=== PATIENT | female | born 1960 | race African-American/Black ===

== ENCOUNTER 2016-08-11 08:28 | Day surgery (SDC) | payer BC ==
--- NOTE | ~2016-08-11 | OP ---
Record Of Operation [facility] [address] [place]. [address] NAME: ELADIO MONTEZ : 56 STATUS : [facility]#: [id number] AGE: 55 ADM/REG DATE : 08/11/16 MR#: [id number] REPORT SERV DATE: 08/15/16 DICTATED BY: OCLBY SEGOVIA DATE: 08/15/16 REPORT STATUS : Draft TRANSCRIBED BY: MODL DATE: 08/15/16 DATE OF PROCEDURE: 08/11/2016 PREOPERATIVE DIAGNOSIS: Metastatic lung cancer with need for IV access for chemotherapy. POSTOPERATIVE DIAGNOSIS: Metastatic lung cancer with need for IV access for chemotherapy. PROCEDURE: Placement of PowerPort, right subclavian vein site (8-Salvadorean). DESCRIPTION OF OPERATIVE PROCEDURE: The patient was brought to the operating suite, placed in the supine position, underwent satisfactory monitored anesthetic care. The skin of the upper chest was scrubbed, prepped, and draped in usual sterile fashion. 0.5% Marcaine with epinephrine was utilized as supplemental local anesthesia at all the surgical sites. Initially, the patient was placed in Trendelenburg position and the right subclavian vein was cannulated using the Seldinger technique. A curved, flexible tipped guidewire was advanced to the atriocaval junction under fluoroscopic guidance. A subcutaneous pocket was created over the right pectoral musculature in the infraclavicular region. The skin was incised, dissecting through the skin and subcutaneous tissue to the pectoralis fascia, and then dissecting superiorly elevating the skin and fat off the fascia to where the venipuncture site and guidewire were. Heparin flushed silastic tubing was trimmed to 18 cm and was brought from the port placement site to the venipuncture site. The tubing was affixed with a locking sleeve to the previously heparin flushed PowerPort, which was then sutured to the pectoralis muscle fascia at four locations using 2-0 Prolene. A peel-away introducer sheath was advanced over the guidewire into the subclavian vein with the guidewire being removed. It was aspirated and showed good blood flow and returned and then the dilator was removed leaving the peel-away sheath in the vein. The silastic tubing was advanced down the peel-away sheath to its full extent with the sheath being removed leaving the tubing affixed to the port in situ. Fluoroscopy confirmed smooth course of the tubing with the tip at the atriocaval junction. The port was aspirated with a straight Berry needle with good blood flow and then flushed with fresh heparinized saline. Subcutaneous pocket was irrigated and closed subcutaneously with interrupted 3-0 Vicryl, running subcuticular stitch with 4-0 Vicryl. Dermabond skin adhesive applied. The patient tolerated the procedure well and was returned to PACU in stable condition. At the termination procedure, sponge, needle, lap, and instrument counts were correct x3. ESTIMATED BLOOD LOSS: Negligible. Record Of Operation [facility] [id number] [place]. [address] NAME: ELADIO MONTEZ : 56 STATUS : [facility]#: [id number] AGE: 55 ADM/REG DATE : 08/11/16 MR#: [id number] REPORT SERV DATE: 08/15/16 DICTATED BY: COLBY SEGOVIA DATE: 08/15/16 REPORT STATUS : Draft TRANSCRIBED BY: LEATHA DATE: 08/15/16 Postprocedural chest x-ray showed smooth course of the tubing with the tip at the atriocaval junction and no evidence of pneumothorax. CHRISTOPHER/LEATHA Colby Segovia M.D. / [id number] CC: Carlyn Carias M.D.
[~2016-08-11 08:28] MED LIST: CARDCD120 PO; DENIES HOME MEDS; FOLIC PO; HYDROCHLOROT25 MG PO; IPRA17AE INH; KLOR-CON M2020 MEQ PO; MYCELEX TROCHE10 MG PO; OXYCOD PO; P20 PO; PCET PO; PENICILLN VK500 MG PO; PR25 PO; PROTONIX PO; TYLENOL PM PO; VITC500 PO
[2016-08-11 09:08] LABS: HEMATOCRIT 37.1 % (36.0-48.0)
[2016-08-11 09:20] LABS: BUN (BLOOD UREA NITROGEN) 6 MG/DL (6-23); CHLORIDE, SERUM 109 MMOL/L (96-112); CO2 (CARBON DIOXIDE) 22 MMOL/L (24-34); CREATININE 0.86 MG/DL (0.55-1.02); GFR AFRICAN AMERICAN 87 ML/MIN (>=60); GFR NON AFRICAN AMERICAN 75 ML/MIN (>=60); SODIUM, SERUM 140 MMOL/L (135-148)
[2016-08-11 09:22] LABS: CALCIUM, SERUM 9.5 MG/DL (8.5-10.4); GLUCOSE, SERUM 161 MG/DL (60-99)
== END 2016-08-11 15:02 | disposition home or self-care (01) ==
LOC: SDC 08:28
PROVIDERS: Specialist
PROC: 0JH60XZ Insertion of Tunneled Vascular Access Device into Chest Subcutaneous Tissue and Fascia, Open Approach (ICD-10-PCS; principal; 2016-08-11 09:45)
DX: C78.00 Secondary malignant neoplasm of unspecified lung (principal); C80.1 Malignant (primary) neoplasm, unspecified; I48.91 Unspecified atrial fibrillation; J44.9 Chronic obstructive pulmonary disease, unspecified; I11.0 Hypertensive heart disease with heart failure; I50.9 Heart failure, unspecified; Z90.49 Acquired absence of other specified parts of digestive tract; Z90.710 Acquired absence of both cervix and uterus; Z98.51 Tubal ligation status; Z98.890 Other specified postprocedural states; Z87.891 Personal history of nicotine dependence; Z79.899 Other long term (current) drug therapy
CPT/HCPCS: 71010; 77001; 80048; 85014; 85018; 93005; A9270-GY; C1751; J0690; J2250; J2405; J3010

== ENCOUNTER 2016-09-18 14:38 | Inpatient (IN) | payer BC ==
--- NOTE | ~2016-09-18 | DS ---
Discharge Summary [facility] [address] [place]. [address] NAME: ELADIO LEO : 56 STATUS : ADM IN [facility]#: [id number] AGE: 55 ADM/REG DATE : 09/18/16 MR#: [id number] REPORT SERV DATE: 09/22/16 DICTATED BY: ARCHANA HEATH DATE: 09/22/16 REPORT STATUS : Draft TRANSCRIBED BY: MODL DATE: 09/22/16 ADMISSION DATE: 09/18/2016 DISCHARGE DATE: 09/22/2016 REASON FOR ADMISSION: Acute PE and dysphagia. HISTORY OF PRESENT ILLNESS: Please refer to Dr. Gavin Chua's history and physical dated 09/18/2016 for complete details on the patient's admission. In brief, the patient was admitted to the Hospitalist Service for an acute PE and concern for COPD exacerbation. HOSPITAL COURSE: 1. The patient was initially started on doxycycline, Solu-Medrol, and nebulizers by Dr. Chua. The patient had a CT angio of her chest on 09/19/2016, which showed a single pulmonary embolus in the left upper lobe. There is an area of soft tissue density in the anterior mediastinum, as well as adjacent to the right pulmonary artery, with increased soft tissue density in the subcarinal region consistent with metastatic disease. There are some bilateral pleural effusions. She was started on initially heparin drip, which was switched over to Lovenox, she has been tolerating it very well. She is off oxygen. She does have some mild retrosternal chest pain. 2. Strep throat. The patient presented with strep antigen positive. She was started on antibiotics and doing well. 3. Dysphagia. 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 With these findings, the patient had an EGD done by Dr. Sosa on 09/21/2016, which showed no endoscopic esophageal abnormality to explain the patient's dysphagia. There was no web or ring seen on the esophagram. Dr. Sosa did multiple passes, but did not find any abnormalities. He however did dilate the esophagus using a 48-Amharic. Afterwards, the patient tolerated the procedure very well. She is now tolerating regular food for the first time in quite some time. She has reached maximal hospitalization and will be discharged home today in stable condition to follow up with Dr. Cordero. DISCHARGE DIAGNOSES: 1. Acute pulmonary embolism, secondary to cancer. 2. Dysphagia, status post esophageal dilatation. 3. Metastatic lung cancer. 4. Strep pneumo positive. 5. Chronic obstructive pulmonary disease with exacerbation, now resolved prior to discharge. DISCHARGE MEDICATIONS: Augmentin 875 mg twice a day for seven days, diltiazem 120 mg daily, folic acid 1 mg daily, Atrovent p.r.n., Roxicodone p.r.n., gabapentin p.r.n. pain, Phenergan p.r.n., and Lovenox 100 mg subcu daily. FOLLOWUP: The patient will follow up with Dr. Cordero as scheduled Discharge Summary [address] [address] NAME: ELADIO LEO : 56 STATUS : ADM IN [facility]#: [id number] AGE: 55 ADM/REG DATE : 09/18/16 MR#: [id number] REPORT SERV DATE: 09/22/16 DICTATED BY: ARCHANA HEATH DATE: 09/22/16 REPORT STATUS : Draft TRANSCRIBED BY: LEATHA DATE: 09/22/[address] Archana Heath spending over 30 minutes discharge planning and coordination of care on Ms. Leo. DICTATED BY: MD SAPPHIRE Blank/LEATHA Archana Heath MD / [id number] CC: Archana Heath MD
--- NOTE | ~2016-09-18 | HP ---
History And Physical [facility] [id number] [place]. [address] NAME: ELADIO MONTEZ : 56 STATUS : ADM IN PAT#: [id number] AGE: 55 ADM/REG DATE : 09/18/16 MR#: [id number] REPORT SERV DATE: 09/19/16 DICTATED BY: FREDERIC STARKS DATE: 09/18/16 REPORT STATUS : Draft TRANSCRIBED BY: MODHenrietta DATE: 09/18/16 DATE OF ADMISSION: 09/18/2016 CHIEF COMPLAINT: A 55-year-old female with metastatic lung cancer, now presenting with increasing shortness of breath and chest pain. HISTORY OF PRESENT ILLNESS: The patient's history was obtained through careful interview with the patient and three daughters, coupled with review of [facility] medical records. The patient was diagnosed with metastatic lung cancer in May 2016 with metastases to the pleural space, pericardial space, and mediastinal lymph nodes. She has been under the care of Dr. Kwan Cordero, on chemotherapy for the last three months. There has been no discussion regarding surgical removal of the cancer nor radiation at this time. But just in the last three weeks, the patient has noticed increasing debilitation, mostly related to an exertional fatigue. She also has had increasing shortness of breath characterized by dyspnea on exertion and it has finally gotten to the point this last week where she cannot even walk across the room without gasping for breath and the stairs to go up into her house nearly debilitated her. She describes two days of new-onset chest discomfort in her left lower chest, at the base of the lung, behind the breast, it has a "grabbing," severe quality, 6/10 in severity, exacerbated by breathing and certain movements. No cough. No diarrhea. She has had nausea with vomiting. She has had about a 25-pound weight loss over the last five months. For the last two months, she has also had increasing severe dysphagia in the last week. She cannot eat anything, but popsicles and yogurt and still drink and food will get stuck in her throat, mostly in the area that she believes is her esophagus. There is no pain with swallowing now. She has had some blurring of vision. No lightheadedness. She describes a very cold feet "like ice." No abdominal pain. She has a dry mouth. REVIEW OF SYSTEMS: Otherwise, a 14-point review of systems was obtained and was negative. PAST MEDICAL HISTORY: 1. Lung cancer with metastases in May 2016, followed by Dr. Kwan Cordero. 2. COPD. 3. Pericardial effusion, status post window in May 2016, related to cancer spread. 4. Hypertension. 5. Right pneumonia. History And Physical [facility] [address] [place]. [address] NAME: ELADIO MONTEZ : 56 STATUS : ADM IN [facility]#: [id number] AGE: 55 ADM/REG DATE : 09/18/16 MR#: [id number] REPORT SERV DATE: 09/19/16 DICTATED BY: FREDERIC STARKS DATE: 09/18/16 REPORT STATUS : Draft TRANSCRIBED BY: LEATHA DATE: 09/18/16 6. Right diaphragm paralysis. 7. Cholelithiasis. 8. Pleural effusion, status post thoracotomy and talc pleurodesis. 9. Peptic ulcer disease, seen by Dr. Sosa. PAST SURGICAL HISTORY: 1. Port-A-Cath. 2. Appendectomy. 3. Hysterectomy with oophorectomy. 4. Lumbar spine surgery. 5. Ectopic . 6. Hand surgery. 7. Pericardial window in May 2016. 8. Thoracotomy with talc pleurodesis. SOCIAL HISTORY: The patient quit smoking in April 2016. Drinks occasional alcohol, but not too often. Lives with her daughter. She is . Has a total of three daughters who are at bedside. 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 FAMILY HISTORY: Brother at 47 years of age of heart valve disease. Sister at 57 years of age of congestive heart failure. Mother with diabetes. Father with cancer and stroke. CURRENT MEDICATIONS: Include diltiazem CD 120 mg p.o. daily, folic acid p.o. daily, Neurontin 300 mg p.o. t.i.d. as needed, Atrovent, Roxicodone 5/10 mg four times a day, Phenergan p.r.n., and chemotherapy. PHYSICAL EXAMINATION: VITAL SIGNS: Temperature 98.4, pulse 110, blood pressure 121/82, respiratory rate 22, and O2 saturation 97% on room air. GENERAL: A pleasant, cooperative, female. She is describing distress from her chest discomfort and shortness of breath. HEENT: Pupils are equal, round, and reactive to light. No conjunctival pallor. No scleral icterus. Nares are patent. Oropharynx is clear of obstruction. Moist mucous membranes. NECK: Trachea midline. No thyromegaly. LYMPH: No cervical lymphadenopathy. No supraclavicular lymphadenopathy. RESPIRATORY: The patient has a "tight" exam with poor air movement to her lungs, scattered rhonchi, but mild. No rales. She has mild dullness to percussion bilaterally to suggest at least [id number] sized pleural effusions. She has a labored respiratory effort. CARDIOVASCULAR: Tachycardic, regular rhythm. No murmurs, rubs, or gallops are appreciated. No current extremity edema is appreciated. ABDOMEN: Soft, nontender, and nondistended. Normal bowel sounds auscultated throughout. No hepatosplenomegaly. DERMATOLOGICAL: Warm and dry extremities. No pallor. No cyanosis. PSYCHIATRIC: Normal affect. Good mood. Alert and oriented x3. History And Physical [address] [address] NAME: ELADIO MONTEZ : 56 STATUS : ADM IN [facility]#: [id number] AGE: 55 ADM/REG DATE : 09/18/16 MR#: [id number] REPORT SERV DATE: 09/19/16 DICTATED BY: FREDERIC STARKS DATE: 09/18/16 REPORT STATUS : Draft TRANSCRIBED BY: LETAHA DATE: 09/18/16 LABORATORY DATA: White blood cell count 5.1, hemoglobin 11.4, hematocrit 35.5, and platelets 119. Sodium 144, potassium 3.1, chloride 106, bicarb 30, BUN 6, creatinine 0.77, and glucose 88. Brain natriuretic peptide 288. Lipase 47. Lactic acid 1.8. INR 1.5. Liver enzymes within normal limits. Urinalysis shows large leukocyte esterase, but only 5 white blood cells and 25 red blood cells. STUDIES: 1. Chest x-ray by my own evaluation shows bilateral pleural effusions. 2. EKG by my own evaluation shows sinus rhythm with tachycardia, low QRS voltage, T-wave inversions in leads V3 through V6; also T-wave inversions in leads I, II, and aVF. ASSESSMENT AND PLAN: 1. Dyspnea. I would like to check a stat CTA of the chest PE protocol. Treat chronic obstructive pulmonary disease. Check an echocardiogram to evaluate pericardial effusion. 2. Chronic obstructive pulmonary disease exacerbation. Place on DuoNeb nebulizers, doxycycline, Solu-Medrol. 3. Metastatic lung cancer, with chemotherapy. Consult Dr. Kwan Cordero. 4. Pericardial effusion with history of pericardial window in May 2016. Check an echocardiogram. 5. Severe dysphagia. Consult Dr. Sosa, aircraft servicer. Place on IV proton pump inhibitor. KPL/MODL Frederic Starks M.D. / [id number] CC: Carlyn Canada Dr., M.D. William M. Cooney, MD
--- NOTE | ~2016-09-18 | CN ---
Consultation Report [facility] [address] [place]. [address] NAME: ELADIO LEO : 56 STATUS : ADM IN PAT#: [id number] AGE: 55 ADM/REG DATE : 09/18/16 MR#: [id number] REPORT SERV DATE: 09/19/16 DICTATED BY: SARA AMBROCIO DATE: 09/19/16 REPORT STATUS : Draft TRANSCRIBED BY: MODL DATE: 09/19/16 GI CONSULTATION DATE OF CONSULTATION: 09/19/2016 REASON FOR CONSULTATION: Evaluation and management of severe dysphagia. HISTORY OF PRESENT ILLNESS: Ms. Leo is a 55-year-old female patient, who is known to our group. We saw her in 05/2016 secondary to her newly diagnosed mediastinal adenocarcinoma with an elevated CEA level. She was at that point in time complaining of shortness of breath with increasing progressiveness of her dyspnea with debility. She came in, imaging was showing enlarging pericardial effusion with pre-tamponade anterior mediastinal mass of unknown etiology. She was seen by Dr. Walsh, underwent bronchoscopy, transesophageal echocardiogram, right thoracoscopy with exploration, subsequently pericardial window with pericardial biopsy, biopsy of anterior mediastinal mass, talc pleurodesis, and an intercostal block. She had a postoperative diagnosis of metastatic adenocarcinoma from the right upper lobe of the lung. She did have at that time elevated CEA level and CA-125 as well as CA-19-9. She had a CT scan of the brain, abdomen, and pelvis which was ultimately, brain was negative for metastatic disease and CT of the abdomen showed some heterogeneous attenuation of the liver which was nonspecific but could have indicated metastasis. She ultimately underwent upper endoscopy as well as colonoscopy with Dr. Sosa. Her testing date 06/01/2016. Her upper endoscopy showed nummular lesions in esophageal mucosa secondary to Petra. Cytology was positive for gastric ulcers with clean base biopsies were negative for H pylori, negative for any metastatic disease. She was treated with fluconazole for three weeks by review of her discharge summary. Her colonoscopy dated 06/01/2016 showed the entire examined colon normal and no suggestion of malignancy. Subsequently, she has discharged. She has been following with Dr. Kwan Cordero in the outpatient setting. Her last chemotherapy treatment was roughly two weeks ago. She is being treated with Alimta and carboplatin. Last imaging showed new progression of her disease. She tells me that in regard to her dysphagia, she has had some progressive symptoms initially with breads and meats sticking. She states that however for the last month she has been living off those soft foods and liquids. However, in the past eight days, she has had progressive trouble swallowing anything. She reports that she has to go through a ritual of turning her head to the left side if she takes any liquids to even facilitate the passage of them. She states that most of the time, it does stick in her mid esophagus. If she tries to swallow anything behind that, it would subsequently cause it to immediately come back up. She states that for the past eight days, it really has not passed even with trying to aid it with other liquids. She immediately regurgitates all of her ingested liquids back up. She is unsure if she has had any weight loss. She does not weigh herself daily. She denies any pain on swallowing. She has not vomited up anything that appears to be bloody type material. She has secondary to her progressive shortness of breath and dysphagia symptoms came in to [facility] for further evaluation. CTA of the chest revealed acute PE of the left upper lobe, and she was subsequently started on a heparin drip. I have discussed with the patient. We will plan on upper GI series barium Consultation Report [facility] [address] [place]. [address] NAME: ELADIO LEO : 56 STATUS : ADM IN PAT#: [id number] AGE: 55 ADM/REG DATE : 09/18/16 MR#: [id number] REPORT SERV DATE: 09/19/16 DICTATED BY: SARA AMBROCIO DATE: 09/19/16 REPORT STATUS : Draft TRANSCRIBED BY: MODL DATE: 09/19/16 swallow today prior to any endoscopic evaluation. I did discuss with her she is at increased risk for sedation. Also we will have to hold her heparin drip four to six hours prior to any endoscopy. I also did discuss with her that if the PEG tube was needed at some point in time, would she be agreeable with this, she states that this is something she has. I discussed with her daughter in the outpatient setting and she would possibly agree to having feeding tube placement done. PAST MEDICAL HISTORY: Positive for gastric ulcers; Petra esophagitis; lung cancer with metastatic disease; malignant pleural effusion and pericardial involvement of COPD; pericardial effusion with pre-tamponade, status post pericardial window in 05/2016; hypertension; pneumonia; pleural effusions; right diaphragm paralysis; cholelithiasis. PAST SURGICAL HISTORY: Ectopic surgery, appendectomy, hysterectomy with oophorectomy, hand surgery, lumbar spine surgery, Port-A-Cath placement to the right upper chest wall, pericardial window, and thoracotomy with talc pleurodesis, SOCIAL HISTORY: Past tobacco cessation 04/2016. Social alcohol. No illicits. Lives independently with her daughter. FAMILY HISTORY: Noncontributory from a GI standpoint. ALLERGIES: LISTED TO NOTHING. HOME MEDICATIONS: Consist of Cardizem, folic acid, Neurontin, Atrovent, Roxicodone, Phenergan, and chemotherapy. REVIEW OF SYSTEMS: A 10-point review of systems has been obtained with pertinent positives being addressed in the history of present illness. PHYSICAL EXAMINATION: VITAL SIGNS: Temperature last being 97.6, pulse of 95, respirations 14, and blood pressure 115/76. NEUROLOGIC: Reveals an alert, female, resting in bed. She has some mild shortness of breath noted. No focal defects. GENERAL: She is cooperative. She is in mild distress secondary to shortness of breath. She is oriented x3. HEAD, EARS, EYES, NOSE, AND THROAT: Anicteric. Pupils are equal, round, and reactive to light and accommodation. Normocephalic and atraumatic. NECK: Supple neck. No JVD. No palpable nodes. LUNGS: Diminished with shallow inspiratory effort noted. She has no wheeze, rhonchi, or rales auscultated. She has O2 at 2 L. CARDIOVASCULAR SYSTEM: Regular rate and rhythm. S1 and S2. ABDOMEN: Soft, nondistended, nontender with hypoactive bowel sounds in all four quadrants. EXTREMITIES: No edema. Normal distal pulses. Consultation Report [address] [place]. [address] NAME: ELADIO LEO : 56 STATUS : ADM [facility]#: [id number] AGE: 55 ADM/REG DATE : 09/18/16 MR#: [id number] REPORT SERV DATE: 09/19/16 DICTATED BY: SARA AMBROCIO DATE: 09/19/16 REPORT STATUS : Draft TRANSCRIBED BY: LEATHA DATE: 09/19/16 SKIN: Warm, dry, and intact. PERTINENT LABORATORY DATA: Sodium 142, potassium 3.8, BUN 6, creatinine 0.99. White count 2.7, hemoglobin 11.2, hematocrit 35.4, and platelet count 143. INR of 1.8. Troponin is less than 0.02. BNP of 248. CT of the abdomen and pelvis with no contrast showed some small abdominal ascites, small right pleural effusion, and small to moderate left pleural effusion. CT of the chest shows left upper lobe acute pulmonary embolus. ASSESSMENT AND PLAN: 1. Acute pulmonary embolus, left upper lobe, now on heparin drip. 2. "Severe dysphagia" progressively worsening over the last eight days from her baseline. 3. Metastatic lung cancer, pericardial involvement, malignant right pleural effusion, status post four cycles of chemotherapy under the direction of Dr. Kwan Cordero, last treatment two weeks ago. 4. Bilateral pleural effusions,shortness of breath, and dyspnea. 5. Chronic obstructive pulmonary disease with exacerbation. 6. History of Petra esophagitis. PLAN: 1. Upper GI series barium swallow today. 2. We will plan EGD in one to two days based on #1 and shortness of breath improvement. 3. Clear liquid diet after testing. 4. Diflucan IV q. day 200 mg for any Petra. 5. We will follow. Other recommendations after upper GI series. BEVERLY/LEATHA RIAN Soliman / [id number] CC: Jose Luis Hall M.D. NO PCP
[2016-09-18 18:02] LABS: ASCORBIC ACID (UR NOT ORDER) NEG (NEG); BILIRUBIN, URINE NEGATIVE (NEG); ER URINALYSIS TAT 0 Hrs 09 Mins; KETONE, URINE NEGATIVE (NEG); LEUKOCYTE ESTERASE(NOT OR LARGE (NEG); NITRITE (URINE) NEG (NEG); WBC (NOT ORDERED) (RFLEX) 5 (0-5)
[2016-09-18 18:19] LABS: BASOPHILS 0 %; EOSINOPHILS 0.2 %; EOSINOPHILS ABSOLUTE 0.01 10/3/uL (0.0-0.53); ER CBC TAT 0 Hrs 14 Mins; HEMATOCRIT 35.5 % (36.0-48.0); HEMOGLOBIN 11.4 g/dL (12.0-16.0); LYMPHOCYTES 46.9 %; LYMPHOCYTES ABSOLUTE 2.38 10/3/uL (0.67-4.30); MEAN CORPUS HGB CONC 32.1 g/dL (32.0-36.0); MEAN CORPUSCULAR HEMOGLOB 31.4 pg (26.0-34.0); MEAN CORPUSCULAR VOLUME 97.8 fL (80-100); MEAN PLATELET VOLUME 10.8 fL (9.2-13.0); MONOCYTES 19.9 %; MONOCYTES ABSOLUTE 1.01 10/3/uL (0.21-1.20); NEUTROPHILS ABSOLUTE 1.67 10/3/uL (2.02-8.40); PLATELET COUNT 119 10/3/uL (150-400); RED CELL COUNT 3.63 10/6/uL (4.0-5.6); WHITE BLOOD CELLS 5.1 10/3/uL (4.5-10.5)
[2016-09-18 18:20] LABS: MANUAL DIFF NO %
[2016-09-18 18:37] LABS: BUN (BLOOD UREA NITROGEN) 6 MG/DL (6-23); CALCIUM, SERUM 9.1 MG/DL (8.5-10.4); CHLORIDE, SERUM 106 MMOL/L (96-112); CREATININE 0.77 MG/DL (0.55-1.02); DIRECT BILIRUBIN 0.3 MG/DL (0.0-0.4); GFR AFRICAN AMERICAN 99 ML/MIN (>=60); GFR NON AFRICAN AMERICAN 86 ML/MIN (>=60); SGOT(AST) 18 U/L (5-40); SGPT(ALT) 18 U/L (5-65); SODIUM, SERUM 144 MMOL/L (135-148); TROPONIN I <0.02 NG/ML (<0.05)
[2016-09-18 18:38] LABS: ALBUMIN 3.5 G/DL (3.5-5.0); ALKALINE PHOSPHATASE 133 U/L (45-117); CHEST PAIN PROFILE TAT 0 Hrs 32 Mins; CO2 (CARBON DIOXIDE) 30 MMOL/L (24-34); GLUCOSE, SERUM 88 MG/DL (60-99); INDIRECT BILIRUBIN(NOT ORDER) 0.5 MG/DL (0.1-0.9); POTASSIUM, SERUM 3.1 MMOL/L (3.5-5.3); TOTAL BILIRUBIN 0.8 MG/DL (0-1.2)
[2016-09-18 18:42] LABS: INTERNATIONAL NORMAL RATI 1.5 UNITS (-); PARTIAL THROMBO TIME 30.2 SEC (22.5-37.2); PROTIME (NOT ORD) 18.3 SEC (12.0-14.5)
[2016-09-18 18:43] LABS: LACTATE 1.8 MMOL/L (0.3-2.4)
[2016-09-18] MEDS ORDERED: PR12.5 PO ×2 (18:51→18:52)
[2016-09-18] MEDS ORDERED: NEUR300 PO (18:51)
[2016-09-18] MEDS ORDERED: CHEMO IV (18:53)
[2016-09-19 05:12] LABS: BASOPHILS 0 %; EOSINOPHILS 0 %; HEMATOCRIT 35.4 % (36.0-48.0); HEMOGLOBIN 11.2 g/dL (12.0-16.0); IMMATURE GRANULOCYTES 0.4 %; IMMATURE GRANULOCYTES ABSOLUTE 0.01 10/3/uL (0.0-0.11); LYMPHOCYTES 33.2 %; LYMPHOCYTES ABSOLUTE 0.89 10/3/uL (0.67-4.30); MEAN CORPUS HGB CONC 31.6 g/dL (32.0-36.0); MEAN CORPUSCULAR VOLUME 98.1 fL (80-100); MEAN PLATELET VOLUME 11.4 fL (9.2-13.0); MONOCYTES 8.6 %; MONOCYTES ABSOLUTE 0.23 10/3/uL (0.21-1.20); NEUTROPHILS 57.8 %; NEUTROPHILS ABSOLUTE 1.55 10/3/uL (2.02-8.40); PLATELET COUNT 143 10/3/uL (150-400); RBC DISTRIBUTION WIDTH 22.6 % (12.0-16.0); RED CELL COUNT 3.61 10/6/uL (4.0-5.6)
[2016-09-19 05:17] LABS: MANUAL DIFF NO %; WHITE BLOOD CELLS 2.7 10/3/uL (4.5-10.5)
[2016-09-19 05:21] LABS: INTERNATIONAL NORMAL RATI 1.8 UNITS (-)
[2016-09-19 05:34] LABS: A/G RATIO 0.9 (0.7-1.9); ALBUMIN 3.3 G/DL (3.5-5.0); ALKALINE PHOSPHATASE 125 U/L (45-117); BUN (BLOOD UREA NITROGEN) 6 MG/DL (6-23); CALCIUM, SERUM 9.2 MG/DL (8.5-10.4); CHLORIDE, SERUM 105 MMOL/L (96-112); CO2 (CARBON DIOXIDE) 28 MMOL/L (24-34); CREATININE 0.99 MG/DL (0.55-1.02); GFR AFRICAN AMERICAN 73 ML/MIN (>=60); GFR NON AFRICAN AMERICAN 63 ML/MIN (>=60); GLOBULIN 3.6 G/DL (2.5-4.1); GLUCOSE, SERUM 191 MG/DL (60-99); POTASSIUM, SERUM 3.8 MMOL/L (3.5-5.3); SGOT(AST) 21 U/L (5-40); SGPT(ALT) 21 U/L (5-65); SODIUM, SERUM 142 MMOL/L (135-148); TOTAL BILIRUBIN 0.7 MG/DL (0-1.2); TOTAL PROTEIN 6.9 G/DL (6.0-8.5); TROPONIN I <0.02 NG/ML (<0.05)
[2016-09-19 06:26] LABS: PROTIME (NOT ORD) 21.1 SEC (12.0-14.5)
[2016-09-19 06:28] LABS: PARTIAL THROMBO TIME > 150.0 SEC (22.5-37.2)
[2016-09-19 06:38] LABS: PROCALCITONIN 0.07 ng/mL (<0.5)
[2016-09-19 07:16] LABS: PLATELET ESTIMATE SLT DEC (ADEQUATE); POLYCHROMASIA 1+ (2-5/OIF) (0-1/OIF)
[2016-09-19 07:17] LABS: BURR CELLS 1+ (3-10/OIF) (0-2/OIF); ELLIPTOCYTES 1+ (3-10/OIF) (0-2/OIF); POIKILOCYTOSIS 1+ (5-10/OIF) (0-5/OIF); TEARDROP SHAPED RBCS OCC (0-2/OIF)
[2016-09-20 06:51] LABS: BASOPHILS 0 %; EOSINOPHILS 0 %; HEMATOCRIT 33.4 % (36.0-48.0); HEMOGLOBIN 10.9 g/dL (12.0-16.0); IMMATURE GRANULOCYTES 0.3 %; IMMATURE GRANULOCYTES ABSOLUTE 0.01 10/3/uL (0.0-0.11); LYMPHOCYTES 28.3 %; LYMPHOCYTES ABSOLUTE 0.92 10/3/uL (0.67-4.30); MANUAL DIFF NO %; MEAN CORPUS HGB CONC 32.6 g/dL (32.0-36.0); MEAN CORPUSCULAR HEMOGLOB 32.2 pg (26.0-34.0); MEAN CORPUSCULAR VOLUME 98.5 fL (80-100); MEAN PLATELET VOLUME 10.7 fL (9.2-13.0); MONOCYTES 15.1 %; MONOCYTES ABSOLUTE 0.49 10/3/uL (0.21-1.20); NEUTROPHILS 56.3 %; NEUTROPHILS ABSOLUTE 1.83 10/3/uL (2.02-8.40); PLATELET COUNT 165 10/3/uL (150-400); RBC DISTRIBUTION WIDTH 22.9 % (12.0-16.0); RED CELL COUNT 3.39 10/6/uL (4.0-5.6); WHITE BLOOD CELLS 3.3 10/3/uL (4.5-10.5)
[2016-09-20 06:57] LABS: INTERNATIONAL NORMAL RATI 1.5 UNITS (-); PROTIME (NOT ORD) 18.1 SEC (12.0-14.5)
[2016-09-20 07:03] LABS: BUN (BLOOD UREA NITROGEN) 8 MG/DL (6-23); CALCIUM, SERUM 9.5 MG/DL (8.5-10.4); CHLORIDE, SERUM 104 MMOL/L (96-112); CO2 (CARBON DIOXIDE) 28 MMOL/L (24-34); CREATININE 1.03 MG/DL (0.55-1.02); GFR AFRICAN AMERICAN 70 ML/MIN (>=60); GFR NON AFRICAN AMERICAN 60 ML/MIN (>=60); POTASSIUM, SERUM 3.7 MMOL/L (3.5-5.3); SODIUM, SERUM 141 MMOL/L (135-148)
[2016-09-20 07:05] LABS: GLUCOSE, SERUM 133 MG/DL (60-99)
[2016-09-20 07:08] LABS: OVALOCYTES 1+ (3-10/OIF) (0-2/OIF); PLATELET ESTIMATE ADQ (ADEQUATE); POIKILOCYTOSIS 1+ (5-10/OIF) (0-5/OIF)
[2016-09-20 07:09] LABS: POLYCHROMASIA 1+ (2-5/OIF) (0-1/OIF)
[2016-09-21 06:41] LABS: INTERNATIONAL NORMAL RATI 1.5 UNITS (-); PROTIME (NOT ORD) 18.1 SEC (12.0-14.5)
[2016-09-21 06:46] LABS: BASOPHILS 0 %; EOSINOPHILS 0 %; HEMATOCRIT 32.9 % (36.0-48.0); HEMOGLOBIN 10.8 g/dL (12.0-16.0); IMMATURE GRANULOCYTES 0.5 %; IMMATURE GRANULOCYTES ABSOLUTE 0.03 10/3/uL (0.0-0.11); LYMPHOCYTES 16.7 %; LYMPHOCYTES ABSOLUTE 0.95 10/3/uL (0.67-4.30); MANUAL DIFF NO %; MEAN CORPUS HGB CONC 32.8 g/dL (32.0-36.0); MEAN CORPUSCULAR HEMOGLOB 32.5 pg (26.0-34.0); MEAN CORPUSCULAR VOLUME 99.1 fL (80-100); MEAN PLATELET VOLUME 10.9 fL (9.2-13.0); MONOCYTES 16.7 %; MONOCYTES ABSOLUTE 0.95 10/3/uL (0.21-1.20); NEUTROPHILS 66.1 %; NEUTROPHILS ABSOLUTE 3.75 10/3/uL (2.02-8.40); NUCLEATED RED BLOOD CELLS 1.2 /100WBC (0-0); PLATELET COUNT 198 10/3/uL (150-400); RBC DISTRIBUTION WIDTH 23.4 % (12.0-16.0); RED CELL COUNT 3.32 10/6/uL (4.0-5.6); WHITE BLOOD CELLS 5.7 10/3/uL (4.5-10.5)
[2016-09-21 06:54] LABS: BUN (BLOOD UREA NITROGEN) 11 MG/DL (6-23); CALCIUM, SERUM 9.6 MG/DL (8.5-10.4); CHLORIDE, SERUM 101 MMOL/L (96-112); CO2 (CARBON DIOXIDE) 27 MMOL/L (24-34); CREATININE 1.14 MG/DL (0.55-1.02); GFR AFRICAN AMERICAN 62 ML/MIN (>=60); GFR NON AFRICAN AMERICAN 53 ML/MIN (>=60); GLUCOSE, SERUM 131 MG/DL (60-99); POTASSIUM, SERUM 3.7 MMOL/L (3.5-5.3); SODIUM, SERUM 138 MMOL/L (135-148)
[2016-09-21 07:10] LABS: PLATELET ESTIMATE ADQ (ADEQUATE)
[2016-09-22] MEDS ORDERED: LOVENOX1C SC (13:17)
[2016-09-22] MEDS ORDERED: AUG875 PO (13:17)
== END 2016-09-22 17:33 | disposition home or self-care (01) | DRG 175 ==
LOC: ER 14:38 → 4SO 19:42
PROVIDERS: Emergency Medicine; Hospitalist; Internal Medicine Gastroenterology; Nurse Practitioner Family
PROC: 0D758ZZ Dilation of Esophagus, Via Natural or Artificial Opening Endoscopic (ICD-10-PCS; principal; 2016-09-21 07:00)
DX: I26.99 Other pulmonary embolism without acute cor pulmonale (principal); D61.810 Antineoplastic chemotherapy induced pancytopenia; C79.89 Secondary malignant neoplasm of other specified sites; C77.1 Secondary and unspecified malignant neoplasm of intrathoracic lymph nodes; C78.2 Secondary malignant neoplasm of pleura; J02.0 Streptococcal pharyngitis; J44.1 Chronic obstructive pulmonary disease with (acute) exacerbation; C34.11 Malignant neoplasm of upper lobe, right bronchus or lung; R13.10 Dysphagia, unspecified; Z87.891 Personal history of nicotine dependence; Z79.899 Other long term (current) drug therapy; Z79.891 Long term (current) use of opiate analgesic; I10 Essential (primary) hypertension; Z87.11 Personal history of peptic ulcer disease; R53.81 Other malaise; I48.2 Chronic atrial fibrillation; T45.1X5A Adverse effect of antineoplastic and immunosuppressive drugs, initial encounter
CPT/HCPCS: 71020; 71275; 74176; 74246; 80048; 80053; 80076; 81001; 83605; 83690; 83735; 83880; 84145; 84443; 84484; 85025; 85610; 85730; 87086; 87449; 93005; 94640; 96374; 99285; A9270-GY; C8929; C9113; J1450; J2370; J2405; J2920; Q9957; Q9967

== ENCOUNTER 2016-09-26 06:18 | Inpatient (IN) | payer BC ==
--- NOTE | ~2016-09-26 | DS ---
Discharge Summary [facility] [address] [place]. [address] NAME: ELADIO MONTEZ : 56 STATUS : ADM IN [facility]#: [id number] AGE: 55 ADM/REG DATE : 09/26/16 MR#: [id number] REPORT SERV DATE: 09/29/16 DICTATED BY: KARIN LANCASTER DATE: 09/29/16 REPORT STATUS : Draft TRANSCRIBED BY: MODL DATE: 09/29/16 ADMISSION DATE: 09/26/2016 DISCHARGE DATE: 09/29/2016 DISCHARGE DIAGNOSES: 1. Pulmonary embolism, diagnosed in September of 2016. 2. Atypical chest pain. 3. Gastroesophageal reflux disease. 4. Bilateral pleural effusion. 5. Metastatic lung cancer. 6. Chronic obstructive pulmonary disease without exacerbation. IMAGIN. Chest x-ray, 04/29/2016, impression: Bilateral effusions with bibasilar atelectasis. 2. Chest x-ray, 09/26/2016, impression: Stable chest x-ray. 3. CTA chest 09/26/2016, impression: No PE, mild cardiomegaly. Pericardium mildly thickened. 4. Chest x-ray, 09/28/2016, increased pulmonary vascular prominence. Bibasilar pleural fluid and atelectasis, right greater than left. LABORATORY DATA: WBC 6.8, hemoglobin 11.1, hematocrit 34.3, platelet count 324. Sodium is 139, potassium is 3.5, chloride is 98, CO2 is 33, BUN is 8, creatinine is 1.07, glucose is 174, calcium is 8.7, BNP is 244.3, troponin is less than 0.02. COURSE OF HOSPITAL STAY: Please refer to history and physical dictated by Dr. Heath on 09/26/2016 for complete admission details. This patient is a 55-year-old female who presented in [facility] Emergency Room with complaints of chest pain and shortness of breath. She does present with a history of stage IV metastatic lung cancer with known metastasis to pleural spaces, pericardium space, and mediastinal lymph nodes. She is under the care of Dr. Kwan Cordero, [facility]. She had recently been discharged from [facility] 4 days prior to this admission for acute PE and dysphagia. At the time of discharge, the patient was discharged home on Lovenox 100 mg subcu daily. She had also undergone evaluation by Dr. Sosa during her previous evaluation for dysphagia. At that time, the patient was discharged home tolerating p.o. Following discharge, the patient was having increased shortness of breath as well as nausea and vomiting. The patient was admitted to the hospital following the above imaging. The patient was started on Lasix 40 mg IV originally every eight hours. This has been changed to Lasix 40 mg every day as well as Lovenox was changed to 70 mg b.i.d. The patient was also started on Reglan and Carafate. At this time, the patient is able to tolerate p.o. She is stating that she has no shortness of breath. utility sales and service manager has been working with patient regarding [id number] cost for prescriptions. The patient will follow up with Dr. Cordero in one week. DISCHARGE MEDICATIONS: 1. Cardizem 100 mg p.o. every day. Discharge Summary [address] [address] NAME: ELADIO MONTEZ : 56 STATUS : ADM IN [facility]#: [id number] AGE: 55 ADM/REG DATE : 09/26/16 MR#: [id number] REPORT SERV DATE: 09/29/16 DICTATED BY: KARIN LANCASTER DATE: 09/29/16 REPORT STATUS : Draft TRANSCRIBED BY: LEATHA DATE: 09/29/16 2. Lovenox 70 mg subcu every 12 hours. 3. Folic acid 1 mg p.o. daily. 4. Lasix 40 mg one p.o. daily. 5. Reglan 5 mg p.o. with meals and at bedtime. 6. Protonix 40 mg one p.o. twice daily. 7. Carafate 1 g p.o. with meals and at bedtime. 8. Chemotherapy per Oncology. 9. Oxycodone 5-10 mg p.o. every four hours p.r.n. for pain. 10.Phenergan 12.5 mg p.o. twice daily p.r.n. for nausea. 11.Tylenol PM 1-2 tabs p.o. at bedtime p.r.n. for insomnia. 12.MiraLAX powder 17 g p.o. daily p.r.n. for constipation. This discharge took less than 30 minutes. DICTATED BY: WOLF Garcia/LEATHA Karin Lancaster NP / [id number] CC: Shan Arriaga M.D.
--- NOTE | ~2016-09-26 | HP ---
History And Physical [place] [id number] [facility] [place]. [address] NAME: ELADIO MONTEZ : 56 STATUS : ADM IN PAT#: [id number] AGE: 55 ADM/REG DATE : 09/26/16 MR#: [id number] REPORT SERV DATE: 09/26/16 DICTATED BY: ARCHANA HEATH DATE: 09/26/16 REPORT STATUS : Draft TRANSCRIBED BY: MODL DATE: 09/26/16 DATE OF ADMISSION: 09/26/2016 REASON FOR ADMISSION: Chest pain and shortness of breath. PRIMARY ONCOLOGIST: Dr. Kwan Cordero. CHIEF COMPLAINT: "I woke up with shortness of breath." HISTORY OF PRESENT ILLNESS: 55-year-old, female with stage IV metastatic lung cancer with metastases to the pleural space, pericardial space, and mediastinal lymph nodes under the surveillance of Dr. Kwan Cordero, was recently discharged from our service about four days ago for an acute PE and dysphagia. During the last admission, the patient was diagnosed with an acute PE and discharged with Lovenox. She did not meet criteria for being placed on oxygen as she was not hypoxic. She did have some dysphagia during that hospitalization, GI Medicine had been consulted and performed an EGD, which did not have any significant findings. Dr. Sosa had dilated her esophagus, after which she was able to eat some food, which has been the first time she was able to tolerate p.o. in quite some time. She had been discharged in a stable condition on 09/22/2016, now presented on 09/26/2016 after she woke up this morning with some shortness of breath and some retrosternal chest pain that she describes as a grabbing sensation. She was not hypoxic at all in the emergency room. The ER physician did a repeat CT angio of her chest, which did not demonstrate any PE but did show some bilateral pleural effusion. She was given a dose of Lasix. At the time my evaluation, she was wriggling around in her bed because she had use the bathroom. She denied feeling short of breath at that time. She was saturating 99% on 2 L. Hospice was asked to admit as the ER physician felt that she appeared to be too uncomfortable to be discharged home. REVIEW OF SYSTEMS: As per HPI. Otherwise, 10-point system reviewed, negative. PAST MEDICAL HISTORY: Lung cancer with metastatic disease in 05/[address] Kwan Cordero. COPD. Resolved pericardial effusion, status post window in 2017. Hypertension. Acute PE, diagnosed in 09/2016. Right diaphragm paralysis. Cholelithiasis. Peptic ulcer disease. PAST SURGICAL HISTORY: She had a Port-A-Cath placement, appendectomy, hysterectomy, oophorectomy, lumbar spine surgery, ectopic , hand surgery, pericardial window in 05/2016, thoracotomy with talc pleurodesis. SOCIAL HISTORY: She quit smoking in 04/2016. She drinks alcohol occasionally. She lives with her daughter. She is . Has a total of three daughters. FAMILY HISTORY: Brother at 47 years of age from heart valve disease. Sister at 57 from congestive heart failure. History And Physical [address] [address] NAME: ELADIO MONTEZ : 56 STATUS : ADM IN [facility]#: [id number] AGE: 55 ADM/REG DATE : 09/26/16 MR#: [id number] REPORT SERV DATE: 09/26/16 DICTATED BY: ARCHANA HEATH DATE: 09/26/16 REPORT STATUS : Draft TRANSCRIBED BY: LEATHA DATE: 09/26/16 ALLERGIES: NO KNOWN ALLERGIES. MEDICATIONS: Include diltiazem 120 mg every morning, Tylenol p.r.n., Lovenox 100 mg subcutaneous daily for acute PE treatment, folic acid 1 mg every morning, Roxicodone p.r.n. pain, Protonix 40 mg twice a day, MiraLAX p.r.n., Phenergan p.r.n., and chemotherapy every 21 days. PHYSICAL EXAMINATION: VITAL SIGNS: Blood pressure is 114/95, oxygen saturations 98% on 2 L, temperature is 98.1, pulse is 100. GENERAL: She is in no acute distress. Wriggling around in bed as she has to urinate given that she had Lasix recently. Otherwise, very pleasant, no acute distress. Not ill appearing. Nontoxic appearing. HEENT: Normocephalic and atraumatic head. Extraocular muscles intact. Oropharynx clear. NECK: Supple. No JVD. CARDIAC: Regular rhythm with tachycardia. No murmurs, rubs, or gallops. PULMONARY: Clear to auscultation bilaterally except for diminished breath sounds at bases. ABDOMEN: Soft, nontender, and nondistended. Positive bowel sounds. EXTREMITIES: No clubbing, cyanosis, or edema. NEUROLOGIC: No focal deficits. PSYCHIATRIC: The patient is cooperative. Mood is appropriate. SKIN: Warm and dry. LABORATORY DATA: Show a white blood cell count 7.6, hemoglobin 11.5, BNP of 300. CT angio of the chest shows no PE, pericardium mildly thickened, no evidence of right ventricular strain, large pleural effusions bilaterally and extensive emphysematous changes, alkaline phosphatase of 119, albumin 3.3, troponin 0.02. EKG shows some sinus tachycardia with nonspecific T-wave changes in the lateral leads. IMPRESSION: 1. Atypical chest pain. 2. Bilateral pleural effusion likely secondary to malignancy. 3. Pulmonary embolism recently diagnosed, but no evidence on current CT angio. 4. Metastatic lung cancer. Followed by Dr. Kwan Cordero. On chemotherapy. 5. Chronic obstructive pulmonary disease without exacerbation. PLAN: To diurese with some IV Lasix. We will repeat a chest x-ray in the morning to evaluate progression. We will resume her home medicines including her Lovenox, likely home on Monday. We will also repeat a troponin six hours from the initial one. The patient is admitted under observation status. Dr. Sylvester will assume care of this patient on 09/27/2016. SAPPHIRE/LEATHA Archana Irving History And Physical [address] [address] NAME: ELADIO MONTEZ : 56 STATUS : ADM IN [facility]#: [id number] AGE: 55 ADM/REG DATE : 09/26/16 MR#: [id number] REPORT SERV DATE: 09/26/16 DICTATED BY: ARCHANA HEATH DATE: 09/26/16 REPORT STATUS : Draft TRANSCRIBED BY: MODL DATE: 09/26/16 MD Ivana / [id number] CC: Archana Heath MD
[2016-09-26 04:51] LABS: BASOPHILS 0.1 %; BASOPHILS ABSOLUTE 0.01 10/3/uL (0.0-0.16); EOSINOPHILS 0.1 %; EOSINOPHILS ABSOLUTE 0.01 10/3/uL (0.0-0.53); ER CBC TAT 0 Hrs 07 Mins; HEMATOCRIT 35.4 % (36.0-48.0); HEMOGLOBIN 11.5 g/dL (12.0-16.0); IMMATURE GRANULOCYTES 0.5 %; IMMATURE GRANULOCYTES ABSOLUTE 0.04 10/3/uL (0.0-0.11); MANUAL DIFF NO %; MEAN CORPUS HGB CONC 32.5 g/dL (32.0-36.0); MEAN CORPUSCULAR HEMOGLOB 32.7 pg (26.0-34.0); MEAN CORPUSCULAR VOLUME 100.6 fL (80-100); MEAN PLATELET VOLUME 10.5 fL (9.2-13.0); MONOCYTES ABSOLUTE 1.29 10/3/uL (0.21-1.20); NEUTROPHILS 53.3 %; NEUTROPHILS ABSOLUTE 4.04 10/3/uL (2.02-8.40); NUCLEATED RED BLOOD CELLS 0.8 /100WBC (0-0); PLATELET COUNT 234 10/3/uL (150-400); RBC DISTRIBUTION WIDTH 23.8 % (12.0-16.0); RED CELL COUNT 3.52 10/6/uL (4.0-5.6); WHITE BLOOD CELLS 7.6 10/3/uL (4.5-10.5)
[2016-09-26 05:05] LABS: INTERNATIONAL NORMAL RATI 1.4 UNITS (-); PARTIAL THROMBO TIME 33.4 SEC (22.5-37.2); PROTIME (NOT ORD) 17.3 SEC (12.0-14.5)
[2016-09-26 05:08] LABS: A/G RATIO 1.1 (0.7-1.9); ALBUMIN 3.3 G/DL (3.5-5.0); ALKALINE PHOSPHATASE 119 U/L (45-117); BUN (BLOOD UREA NITROGEN) 9 MG/DL (6-23); CALCIUM, SERUM 8.8 MG/DL (8.5-10.4); CHLORIDE, SERUM 104 MMOL/L (96-112); CO2 (CARBON DIOXIDE) 27 MMOL/L (24-34); CREATININE 0.85 MG/DL (0.55-1.02); GFR AFRICAN AMERICAN 88 ML/MIN (>=60); GFR NON AFRICAN AMERICAN 76 ML/MIN (>=60); POTASSIUM, SERUM 3.4 MMOL/L (3.5-5.3); SGOT(AST) 21 U/L (5-40); SGPT(ALT) 22 U/L (5-65); SODIUM, SERUM 140 MMOL/L (135-148); TOTAL BILIRUBIN 0.9 MG/DL (0-1.2); TOTAL PROTEIN 6.3 G/DL (6.0-8.5); TROPONIN I <0.02 NG/ML (<0.05)
[2016-09-26 05:13] LABS: GLUCOSE, SERUM 100 MG/DL (60-99); PLATELET ESTIMATE ADQ (ADEQUATE)
[2016-09-26 05:14] LABS: MACROCYTES 1+ (5-10/OIF) (0-5/OIF)
[~2016-09-26 06:18] MED LIST changes: +AUG875 PO; +CHEMO IV; +LOVENOX1C SC; +NEUR300 PO; +PR12.5 PO
[2016-09-26] MEDS ORDERED: CHEMO THERAPY IV (07:35)
[2016-09-26] MEDS ORDERED: CARDCD120 PO (07:36)
[2016-09-26] MEDS ORDERED: OXYCOD PO (07:36)
[2016-09-26] MEDS ORDERED: PROTONIX PO (07:37)
[2016-09-26] MEDS ORDERED: FOLIC PO (07:37)
[2016-09-26] MEDS ORDERED: PR12.5 PO (07:38)
[2016-09-26] MEDS ORDERED: LOVENOX1C SC (07:39)
[2016-09-26] MEDS ORDERED: TYLENOL PM PO (07:40)
[2016-09-26] MEDS ORDERED: MIRALAX POWDER1 PKT PO (07:40)
[2016-09-26 13:00] LABS: PHOSPHORUS, SERUM 3.5 MG/DL (2.5-4.5); TROPONIN I <0.02 NG/ML (<0.05)
[2016-09-27 05:02] LABS: BASOPHILS 0.1 %; BASOPHILS ABSOLUTE 0.01 10/3/uL (0.0-0.16); EOSINOPHILS 0.3 %; EOSINOPHILS ABSOLUTE 0.02 10/3/uL (0.0-0.53); HEMATOCRIT 34.1 % (36.0-48.0); IMMATURE GRANULOCYTES 0.7 %; IMMATURE GRANULOCYTES ABSOLUTE 0.05 10/3/uL (0.0-0.11); LYMPHOCYTES 30.9 %; LYMPHOCYTES ABSOLUTE 2.13 10/3/uL (0.67-4.30); MEAN CORPUS HGB CONC 32.3 g/dL (32.0-36.0); MEAN CORPUSCULAR HEMOGLOB 32.5 pg (26.0-34.0); MEAN CORPUSCULAR VOLUME 100.9 fL (80-100); MEAN PLATELET VOLUME 10.3 fL (9.2-13.0); MONOCYTES 19.4 %; MONOCYTES ABSOLUTE 1.34 10/3/uL (0.21-1.20); NEUTROPHILS 48.6 %; NEUTROPHILS ABSOLUTE 3.35 10/3/uL (2.02-8.40); PLATELET COUNT 220 10/3/uL (150-400); RED CELL COUNT 3.38 10/6/uL (4.0-5.6); WHITE BLOOD CELLS 6.9 10/3/uL (4.5-10.5)
[2016-09-27 05:03] LABS: MANUAL DIFF NO %
[2016-09-27 05:19] LABS: BUN (BLOOD UREA NITROGEN) 11 MG/DL (6-23); CALCIUM, SERUM 8.6 MG/DL (8.5-10.4); CHLORIDE, SERUM 100 MMOL/L (96-112); CREATININE 0.84 MG/DL (0.55-1.02); GFR AFRICAN AMERICAN 89 ML/MIN (>=60); GFR NON AFRICAN AMERICAN 77 ML/MIN (>=60); GLUCOSE, SERUM 119 MG/DL (60-99); SODIUM, SERUM 142 MMOL/L (135-148)
[2016-09-27 05:20] LABS: CO2 (CARBON DIOXIDE) 33 MMOL/L (24-34); POTASSIUM, SERUM 2.9 MMOL/L (3.5-5.3)
[2016-09-27 05:27] LABS: ELLIPTOCYTES 1+ (3-10/OIF) (0-2/OIF); MACROCYTES 1+ (5-10/OIF) (0-5/OIF); PLATELET ESTIMATE ADQ (ADEQUATE)
[2016-09-27 05:28] LABS: TEARDROP SHAPED RBCS FEW (3-10/OIF)
[2016-09-28 05:02] LABS: HEMATOCRIT 34.3 % (36.0-48.0); HEMOGLOBIN 11.1 g/dL (12.0-16.0); MANUAL DIFF YES %; MEAN CORPUS HGB CONC 32.4 g/dL (32.0-36.0); MEAN CORPUSCULAR HEMOGLOB 32.8 pg (26.0-34.0); MEAN CORPUSCULAR VOLUME 101.5 fL (80-100); MEAN PLATELET VOLUME 10.1 fL (9.2-13.0); NUCLEATED RED BLOOD CELLS 0.8 /100WBC (0-0); PLATELET COUNT 212 10/3/uL (150-400); RBC DISTRIBUTION WIDTH 24.2 % (12.0-16.0); RED CELL COUNT 3.38 10/6/uL (4.0-5.6); WHITE BLOOD CELLS 6.8 10/3/uL (4.5-10.5)
[2016-09-28 05:18] LABS: BUN (BLOOD UREA NITROGEN) 8 MG/DL (6-23); CALCIUM, SERUM 8.7 MG/DL (8.5-10.4); CHLORIDE, SERUM 98 MMOL/L (96-112); CO2 (CARBON DIOXIDE) 33 MMOL/L (24-34); CREATININE 1.07 MG/DL (0.55-1.02); GFR AFRICAN AMERICAN 67 ML/MIN (>=60); GFR NON AFRICAN AMERICAN 58 ML/MIN (>=60); SODIUM, SERUM 139 MMOL/L (135-148); TROPONIN I <0.02 NG/ML (<0.05)
[2016-09-28 05:20] LABS: GLUCOSE, SERUM 174 MG/DL (60-99); POTASSIUM, SERUM 3.5 MMOL/L (3.5-5.3)
[2016-09-28 05:25] LABS: BAND NEUTROPHILS 1 %; LYMPHOCYTES 22 %; MACROCYTES 1+ (5-10/OIF) (0-5/OIF); MONOCYTES 14 %; MONOCYTES ABSOLUTE (CALC) 0.95 10/3/uL (0.21-1.20); NEUTROPHILS ABSOLUTE (CALC) 4.35 10/3/uL (2.02-8.40); PLATELET ESTIMATE ADQ (ADEQUATE); SEGMENTED NEUTROPHIL (0) 63 %; TOTAL NUCLEATED CELLS 100
[2016-09-29] MEDS ORDERED: ZOFRAN4 PO (09:39)
[2016-09-29] MEDS ORDERED: LOVENOX80 SC (09:39)
[2016-09-29] MEDS ORDERED: CARD120 PO (09:40)
[2016-09-29] MEDS ORDERED: L40 PO (09:40)
[2016-09-29] MEDS ORDERED: REG5 PO (09:40)
[2016-09-29] MEDS ORDERED: K-TABS10 MEQ PO (09:41)
[2016-09-29] MEDS ORDERED: SUCR PO (09:41)
== END 2016-09-29 16:57 | disposition home or self-care (01) | DRG 181 ==
LOC: ER 06:18 → CDU1 09:57 → 4EA 15:11
PROVIDERS: Internal Medicine; Nurse Practitioner Adult Health; Specialist
DX: C34.90 Malignant neoplasm of unspecified part of unspecified bronchus or lung (principal); J91.0 Malignant pleural effusion; I27.82 Chronic pulmonary embolism; J44.1 Chronic obstructive pulmonary disease with (acute) exacerbation; K21.9 Gastro-esophageal reflux disease without esophagitis; Z79.01 Long term (current) use of anticoagulants
CPT/HCPCS: 71010; 71020; 71275; 80048; 80053; 83735; 83880; 84100; 84484; 85025; 85610; 85730; 87040; 93005; 96374; 99285; A9270-GY; J1940; J2405; J2765; Q9967